=== PATIENT | female | born 2000 | race Caucasian/White ===

== ENCOUNTER 2021-05-01 16:38 | Emergency (ER) | payer OTHER ==
[~2021-05-01] VITALS: Ht 160 cm; Wt 72.7 kg
[2021-05-01 17:30] VITALS: BP 145/91
[2021-05-01] MEDS ORDERED: FLUORESCEIN 1MG EYE STRIP. OS ONE (18:30)
[2021-05-01] MEDS ORDERED: TETRACAINE 0.5% OPHTH SOLUTION 4ML BOTTLE. OS ONE (18:30)
--- NOTE | 2021-05-01 18:42 | PHYS DOC ---
Past History Past Surgical History: No Surgical History (SIMEON LOZANO APRN) General Adult EDM: Chief Complaint: EYE PROBLEMS HPI: HPI: Patient is a 21-year-old female who presents with left eye pain and tearing. Patient states that her 8-month-old scratched her in her left eye this afternoon. Denies visual changes. Light sensitivity and pain with opening eye. Denies medical history. (SIMEON LOZANO APRN) Review of Systems: Review of Systems: ROS At least 10 ROS systems have been reviewed and are negative except as documented in the HPI. General: Negative except as outlined in HPI above. Skin: Negative except as outlined in HPI above. HEENT: Negative except as outlined in HPI above. Neck: Negative except as outlined in HPI above. Respiratory: Negative except as outlined in HPI above.. Cardiovascular: Negative except as outlined in HPI above. Abdomen: Negative except as outlined in HPI above. : Negative except as outlined in HPI above. Back/MSK: Negative except as outlined in HPI above. Neuro: Negative except as outlined in HPI above. Psych: Negative except as outlined in HPI above. (SIMEON LOZANO APRN) Current Medications: Current Meds: Current Medications Medications (Trade) Dose Ordered Sig/Taurus Start Time Stop Time Status Last Admin Dose Admin Fluorescein Sodium (Ful-Dionna 1mg) 1 strip 1X ONCE 05/01/21 18:30 05/01/21 18:32 DC Tetracaine HCl (Tetracaine) 1 drop 1X ONCE 05/01/21 18:30 05/01/21 18:32 DC (SIMEON LOZANO APRN) Allergies: Allergies: Allergies Coded Allergies Type Severity Reaction Last Updated Verified No Known Drug Allergies 05/01/21 No (SIMEON LOZANO APRN) Physical Exam: PE: Constitutional: Well developed, well nourished, no acute distress, non-toxic appearance. [] HENT: Normocephalic, atraumatic, bilateral external ears normal, oropharynx moist, no oral exudates, nose normal. [] Eyes: PERRLA, EOMI, conjunctiva red, watery Neck: Normal range of motion, no tenderness, supple, no stridor. [] Cardiovascular:Heart rate regular rhythm, no murmur [] Lungs & Thorax: Bilateral breath sounds clear to auscultation [] Abdomen: Bowel sounds normal, soft, no tenderness, no masses, no pulsatile masses. [] Skin: Warm, dry, no erythema, no rash. [] Back: No tenderness, no CVA tenderness. [] Extremities: No tenderness, no cyanosis, no clubbing, ROM intact, no edema. [] Neurologic: Alert and oriented X 3, normal motor function, normal sensory function, no focal deficits noted. [] Psychologic: Affect normal, judgement normal, mood normal. [] (SIMEON LOZANO APRN) Current Patient Data: Vital Signs: Vital Signs Date Time Temp Pulse Resp B/P (MAP) Pulse Ox O2 Delivery O2 Flow Rate FiO2 05/01/21 17:30 69 16 145/91 (109) 99 05/01/21 17:05 98.0 Room Air (SIMEON LOZANO APRN) EKG: EKG: [] (SIMEON LOZANO APRN) Radiology/Procedures: Radiology/Procedures: [] (SIMEON LOZANO APRN) Heart Score: C/O Chest Pain: No Risk Factors: Risk Factors: DM, Current or recent (<one month) smoker, HTN, HLP, family history of CAD, obesity. Risk Scores: Score 0 - 3: 2.5% MACE over next 6 weeks - Discharge Home Score 4 - 6: 20.3% MACE over next 6 weeks - Admit for Clinical Observation Score 7 - 10: 72.7% MACE over next 6 weeks - Early Invasive Strategies (SIMEON LOZANO APRN) Course & Med Decision Making: Course & Med Decision Making Pertinent Labs and Imaging studies reviewed. (See chart for details) [] 21-year-old female presents with left eye injury. Patient's child scratched her in the eye. Patient's eye is red, tearing. No hyphema. No visual changes. (SIMEON LOZANO APRN) Course & Med Decision Making Did not see or evaluate patient. Did not discuss patient with ALFALFA DEHYDRATOR OPERATOR. Agree with ALFALFA DEHYDRATOR OPERATOR's work-up and disposition per note. (SAMANTHA SEGOVIA MD) Dragon Disclaimer: Dragon Disclaimer: This electronic medical record was generated, in whole or in part, using a voice recognition dictation system. (SIMEON LOZANO APRN) Departure Departure: Impression: Primary Impression: Left eye injury Qualified Codes: S05.92XA - Unspecified injury of left eye and orbit, initial encounter Disposition: HOME / SELF CARE / HOMELESS Condition: STABLE Referrals: PCP,NO (PCP) Patient Instructions: Eye - Corneal Abrasion, [id number] Additional Instructions: You were seen in the emergency room for left eye pain after being poked in the eye. You most likely have a corneal abrasion. Sending you home with prescription eyedrops. If symptoms persist after 48 hours, please follow-up w ith PCP for reevaluation. Return to emergency room if you have worsening symptoms or concerns. EMERGENCY DEPARTMENT GENERAL DISCHARGE INSTRUCTIONS Thank you for coming to [facility] (ED) today and trusting us with you care. We trust that you had a positivie experience in our Emergency Department. If you wish to speak to the department management, you may call the director at [phone]. YOUR FOLLOW UP INSTRUCTIONS ARE FOLLOWS: 1. Do you have a private Doctor? If you do not have a private doctor, please ask for a resource list of physicians or clinics that may be able to assist you with follow up care. 2. The Emergency Physician has interpreted your x-rays. The X-Ray specialist will also review them. If there is a change in the findings, you will be notified in 48 hours when at all possible. 3. A lab test or culture has been done, your results will be reviewed and you will be notified if you need a change in treatment. ADDITIONAL INSTRUCTIONS AND INFORMATION: 1. Your care today has been supervised by a physician who is specially trained in emergency care. Many problems require more than one evaluation for a complete diagnosis and treatment. We recommend that you schedule your follow up appointment as recomme nded to ensure complete treatment of you illness or injury. If you are unable to obtain follow up care and continue to have a problem, or if your condition worsens, we recommend that you return to the ED. 2. We are not able to safely determine your condition over the phone nor are we able to give sound medical advice over the phone. For these safety reasons, if you call for medical advice we will ask you to come to the ED for further evaluation. 3. If you have any questions regarding these discharge instructions please call the ED at [phone]. SAFETY INFORMATION: In the interest of safety, wellness, and injury prevention; we encourage you to wear your sealbelt, if you smoke; quite smoking, and we encourage family to use a protective helmet for bicycling and other sporting events that present an increased risk for head injury. IF YOUR SYMPTOMS WORSEN OR NEW SYMPTOMS DEVELOP, OR YOU HAVE CONCERNS ABOUT YOUR CONDITION; OR IF YOUR CONDITION WORSENS WHILE YOU ARE WAITING FOR YOUR FOLLOW UP APPOINTMENT; EITHER CONTACT YOUR PRIMARY CARE DOCTOR, THE PHYSICIAN WHOSE NAME AND NUMBER YOU WERE GIVEN, OR RETURN TO THE ED IMMEDIATELY. Scripts Ketorolac Tromethamine (KETOROLAC TROMETHAMINE) 5 Ml Drops 1 DROP LEFTEYE QID for pain for 2 Days, #5 ML 0 Refills Prov: SIMEON LOZANO APRN 05/01/21 Ciprofloxacin Hcl (CIPROFLOXACIN HCL) 2.5 Ml Drops 1 DROP LEFTEYE QID for corneal abrasion for 5 Days, #5 ML 0 Refills Prov: SIMEON LOZANO APRN 05/01/21 SIMEON LOZANO APRN May 01, 2021 18:42 SAMANTHA SEGOVIA MD May 01, 2021 22:56
[2021-05-01] MEDS ORDERED: KETO5DRO72 LEFTEYE (19:27)
[2021-05-01] MEDS ORDERED: CIPR2.5D2 LEFTEYE (19:27)
== END 2021-05-01 20:03 | disposition home or self-care (01) ==
LOC: ER 16:38
DX: S05.02XA Injury of conjunctiva and corneal abrasion without foreign body, left eye, initial encounter (principal); X58.XXXA Exposure to other specified factors, initial encounter; Y93.89 Activity, other specified; Y92.89 Other specified places as the place of occurrence of the external cause; Y99.8 Other external cause status
CPT/HCPCS: 99283-25